=== PATIENT | female | born 1960 | race Caucasian/White ===

== ENCOUNTER 2022-08-23 15:52 | Emergency (ER) | payer MEDICAID, OTHER ==
[~2022-08-23] VITALS: Ht 165.1 cm; Wt 65.9 kg
[2022-08-23] MEDS ORDERED: EPINEPHrine HCL 1 MG/10 ML SYRG IV ONE (15:53)
[2022-08-23] MEDS ORDERED: CALCIUM CHLOR(10%) 100MG/ML 10ML SYRINGE IV ONE (15:53)
[2022-08-23] MEDS ORDERED: MAGNESIUM SULF 50% 40 MEQ/10 ML VL IV ONE (15:53)
[2022-08-23] MEDS ORDERED: SODIUM BICARBONATE 8.4% INJ 50ML SYRINGE IV ONE (15:53)
[2022-08-23] MEDS ORDERED: DEXTROSE (50%) 50ML SYRG IV ONE (15:53)
[2022-08-23 16:20] VITALS: BP 0/0
[2022-08-23] MEDS ORDERED: NOREPINEPHRINE 8 MG/250ML KIT 250 ML IV ONE (16:20)
== END 2022-08-23 23:00 ==
LOC: EDBD 15:52 → ER 15:52
DX: I46.9 Cardiac arrest, cause unspecified (principal)
CPT/HCPCS: 31500; 36556; 92950; 99285; J0171; J3475; J7042